=== PATIENT | female | born 1975 | race Caucasian/White ===

== ENCOUNTER → 2017-07-17 | Outpatient (CLI) | payer BC ==
[~2017-07-17] MED LIST: CRAN1CAP5 PO; DOCU100C37 PO; EST30C VG; GARL100T PO; HYDR-34 PO; IBUP-844 PO; OMG1KC PO; SIME80TA16 PO
--- NOTE | 2017-07-17 17:47 | Diagnostic Imaging Report ---
INDICATION: Menorrhagia. TECHNIQUE: Multiple real-time grayscale sonographic images were obtained of the pelvis transabdominally and transvaginally. CORRELATION STUDY: None. FINDINGS: UTERUS/ENDOMETRIUM: Uterus measures 8.9 x 8.6 x 8.1 cm. Endometrial thickness is 15 mm. Area of heterogeneity along the right aspect of the uterus while nonspecific suspect for potential fibroid measuring 5.9 x 7.3 x 5.3 cm. This does displace with contour deformity at the endometrial stripe towards the left. Endometrium is borderline thickened at 15 mm, a premenopausal patient. Additionally, there is the suggestion of some increased vascular blood flow. RIGHT OVARY: Not visualized, perhaps obscured by overlying bowel gas or positional. LEFT OVARY: 4.3 x 2.2 x 1.9 cm. Left ovary appears relatively unremarkable. Blood flow is demonstrates to the left ovary. No significant free pelvic fluid. IMPRESSION: 1. Probable fibroid uterus with a fibroid measuring approximately 7 cm in size. There is resultant displacement of the endometrial stripe. 2. Endometrium is borderline thickened for a premenopausal patient with abnormal vascularity. Given history, the possibility of endometrial hyperplasia, polyp, or perhaps endometrial malignancy is not excluded. Follow-up imaging is recommended for reassessment. Dictated by: Dictated on workstation # [id number]
== END ==
LOC: RAD 12:54
PROVIDERS: ATTEND Obstetrics & Gynecology
DX: N85.2 Hypertrophy of uterus (principal)
CPT/HCPCS: 76830; 76856

== ENCOUNTER 2017-08-01 12:16 | Outpatient (CLI) | payer BC ==
[~2017-08-01] VITALS: Ht 157.5 cm; Wt 63.0 kg
[2017-08-01 12:23] VITALS: BP 114/72
[2017-08-01 12:45] LABS: BILIRUBIN,URINE NEGATIVE (NEGATIVE); CLARITY,URINE CLEAR; COLOR,URINE YELLOW; GLUCOSE, URINE (UA) NEGATIVE (NEGATIVE); KETONES,URINE NEGATIVE (NEGATIVE); LEUKOCYTE ESTERASE ,URINE 1+ (NEGATIVE); NITRITE,URINE NEGATIVE (NEGATIVE); PH,URINE 7 (5-9); PROTEIN,URINE NEGATIVE (NEGATIVE); UROBILINOGEN,URINE NORMAL (NORMAL)
[2017-08-01 12:54] LABS: BACTERIA,URINE TRACE /HPF; RBC,URINE RARE /HPF; SQUAMOUS EPITHELIAL CELL,UR 0-2 /HPF; WBC,URINE RARE /HPF
[2017-08-01] MEDS ORDERED: GARL100T PO (13:52)
[2017-08-01] MEDS ORDERED: OMG1KC PO (13:52)
[2017-08-01] MEDS ORDERED: CRAN1CAP5 PO (13:52)
[2017-08-08] MEDS ORDERED: EST30C VG (10:18)
[2017-08-08] MEDS ORDERED: IBUP-844 PO (10:18)
[2017-08-08] MEDS ORDERED: SIME80TA16 PO (10:18)
[2017-08-08] MEDS ORDERED: HYDR-34 PO (10:18)
[2017-08-08] MEDS ORDERED: DOCU100C37 PO (10:18)
== END 2017-08-01 12:45 | disposition home or self-care (01) ==
LOC: PREOP 12:16
PROVIDERS: ATTEND Obstetrics & Gynecology
DX: Z01.818 Encounter for other preprocedural examination (principal); D25.9 Leiomyoma of uterus, unspecified
CPT/HCPCS: 81000; 87081

== ENCOUNTER 2017-08-07 06:07 | Day surgery (SDC) | payer BC ==
[2017-08-07] VITALS (8 sets, daily range): BP systolic 96–106; BP diastolic 61–72
[~2017-08-07] VITALS: Ht 157.5 cm; Wt 63.0 kg
[~2017-08-07 06:07] MED LIST changes: -DOCU100C37 PO; -EST30C VG; -HYDR-34 PO; -IBUP-844 PO; -SIME80TA16 PO
[2017-08-07] MEDS: LACTATED RINGERS 1,000 ML IV PRN ×2 (06:20→08:30)
[2017-08-07 06:40] LABS: BASOPHILS % (AUTO) 0 % (0-10); EOSINOPHILS % (AUTO) 0 % (0-10); HEMATOCRIT 40 % (35-52); HEMOGLOBIN 13.8 G/DL (11.5-16.0); LYMPHOCYTES # (AUTO) 1.5 X 10^3 (1.0-4.0); LYMPHOCYTES % (AUTO) 27 % (12-44); MEAN CORPUSCULAR HEMOGLOBIN 29 PG (25-34); MEAN CORPUSCULAR HGB CONC 35 G/DL (32-36); MEAN CORPUSCULAR VOLUME 84 FL (80-99); MEAN PLATELET VOLUME 10.4 FL (7.4-10.4); MONOCYTES # (AUTO) 0.5 X 10^3 (0.0-1.0); MONOCYTES % (AUTO) 10 % (0-12); NEUTROPHILS # (AUTO) 3.4 X 10^3 (1.8-7.8); NEUTROPHILS % (AUTO) 63 % (42-75); PLATELET COUNT 219 10^3/uL (130-400); RED BLOOD COUNT 4.76 10^6/uL (4.35-5.85); RED CELL DISTRIBUTION WIDTH 15.3 % (10.0-14.5); WHITE BLOOD COUNT 5.4 10^3/uL (4.3-11.0)
[2017-08-07] MEDS ORDERED: NS (IVPB) 50 ML ONE (06:47)
[2017-08-07] MEDS ORDERED: metroNIDAZOLE 500MG/100ML IVPB 100 ML ONE (06:47)
[2017-08-07] MEDS ORDERED: ceFAZolin 1,000 MG (ANCEF) VIAL ONE (06:47)
[2017-08-07] MEDS ORDERED: proPOfol 200 MG/20 ML (DIPRIVAN) VIAL IV ONE (06:51)
[2017-08-07] MEDS ORDERED: LIDOCAINE PF 2% 5 ML (XYLOCAINE) VIAL ONE (06:51)
[2017-08-07] MEDS ORDERED: MIDAZOLAM 2 MG/2 ML (VERSED) VIAL ONE (06:51)
[2017-08-07] MEDS ORDERED: ROCURONIUM 10 MG/ML 5 ML SYRINGE IV ONE (06:51)
[2017-08-07] MEDS ORDERED: fentaNYL INJECTION 100 MCG/2 ML AMP ONE ×2 (06:51→10:11)
[2017-08-07] MEDS ORDERED: SEVOFLURANE (ULTANE) 15 ML INHAL SOLN ONE ×10 (06:51→11:47)
[2017-08-07] MEDS ORDERED: ceFAZolin 1 GM/NS 50 ML IVPB IV ONE ×2 (07:15)
[2017-08-07] MEDS ORDERED: metroNIDAZOLE 500 MG/100 ML IVPB (PRE-MIX) IV ONE (07:15)
[2017-08-07] MEDS ORDERED: VASOPRESSIN INJECTION 20 UNIT/ML VIAL ONE (07:29)
[2017-08-07] MEDS ORDERED: BUP/EPI 0.5% 1:200,000 (SENSORCAINE) 30 ML VIAL ONE (07:29)
[2017-08-07] MEDS ORDERED: ESTROGENS CONJ. CREAM 30 GM (PREMARIN) TUBE ONE (07:29)
[2017-08-07] MEDS ORDERED: metroNIDAZOLE 500MG/100ML IVPB 100 ML IV ONE (07:30)
[2017-08-07] MEDS ORDERED: ceFAZolin INJECTION 1,000 MG in NS (IVPB) 50 ML IV ONE (07:30)
--- NOTE | 2017-08-07 08:05 | Progress Note-Pre Operative ---
Pre-Operative Progress Note H&P Reviewed The H&P was reviewed, patient examined and no changes noted. Date Seen by Provider: Aug 07, 2017 Time Seen by Provider: 07:35 Date H&P Reviewed: Aug 07, 2017 Time H&P Reviewed: 07:30 Pre-Operative Diagnosis: uterine fibroid, menorrhagia, anemia, dysmenorrhea, genital prolapse, john AMANDA SAXENA DO Aug 07, 2017 08:05
[2017-08-07] MEDS ORDERED: DEXAMETHASONE 10 MG/ML (DECADRON) 1 ML VIAL ONE (09:59)
[2017-08-07] MEDS: NS (IVPB) 100 ML ONE (11:00)
[2017-08-07] MEDS ORDERED: KETOROLAC 30 MG/ML VIAL ONE (11:22)
[2017-08-07] MEDS ORDERED: INDIGO CARMINE 8 MG/ML 5 ML AMP ONE (11:22)
--- NOTE | 2017-08-07 11:27 | Operative Report ---
Operative Report Date of Procedure/Surgery Aug 07, 2017 Surgeon (s) AMANDA SAXENA DO Used Car Manager (s): [place] asst nec to retract imp. neurovascular structures Post-Operative Diagnosis Uterovaginal prolapse, incomplete Uterine fibroid cystocele Stress incontinence liver adhesions Procedure Performed (> 250 grams) RaTH, bilateral salpingectomy, right oophorectomy ant repair Solyx Description of Procedure Anesthesia Type: General Estimated blood loss (mL): 150 Specimen(s) collected/removed uterus, tubes ovary uterus 335 grams Description of the Procedure With informed consent, the patient was taken to the operating room where general anesthesia was found to be adequate. She was then placed in the dorsal lithotomy position, prepped and draped in the normal sterile fashion. The Burkett catheter was placed using sterile technique. A weighted speculum was inserted in the patient's vagina. A right angle retractor is used visualizing the cervix, was grasped at the 12 o'clock position using a single tooth tenaculum. I then placed a 0 Vicryl suture through the anterior lip of the cervix and removed the single tooth tenaculum; this provided retraction. I then placed the MAYCO uterine manipulator. An 12 cm MAYCO uterine manipulator tip and a 3.5 cm colpotomy ring were placed and advance the MAYCO uterine manipulator into the endometrial cavity, deploy the balloon and advancing the colpotomy ring around the vaginal fornix. Once this is in place, attention was now turned to the abdomen I placed a supraumbilical incision after infiltrating with 0.25% Marcaine. I then made a 1 cm incision and placed the Veress needle. Intraabdominal placement was confirmed with the use of the saline drop test and a drop in pressure. The abdomen was now insufflated to a maximum pressure of 15 mmHg with warmed CO2 gas. An 8 mm trocar was now placed. And intraabdominal placement was confirmed with the Da Dash laparoscopy. The patient was now placed into steep Trendelenburg. I placed 2 lateral trocars, on the right side and the left side, approximately 12 cm lateral to my infraumbilical trocar. I infiltrate the skin using 0.25% Marcaine and make an 8 mm incisions and I direct trocars under direct visualization of the laparoscope into the peritoneal cavity. Once these trocars are in place, I brought in the da Dash robot and docked it in the appropriate fashion. I placed the bi polar graspers in the left hand. And the monopolar martinez in my right hand. I now performed bilateral salpingectomies by incision the mesosalpinx bilaterally and then clamping the tube at the cornu bilaterally and uterineovarian ligaments completing the excision of the tubes. I then grasped the round ligament, bipolar cauterize this and transect it using the martinez. I then grasp the entire broad ligament, bipolar cauterize it and transect it using the martinez down to the level lower uterine segment. Now I am able to skeletonize the uterine vessels which are bipolar cauterized and transected using the martinez. During this dissection, I trace the ureter all the way down to its crossing point across the uterine artery and very careful to stay clear of this area as I dissect. I then am able to take my anterior dissection from previously. I create a colpotomy to the 12 o'clock position using the monopolar martinez and take this circumferentially amputating the cervix away from the vaginal fornix. The cervix , uterus are then removed through the vagina. This is left in place in the vagina to keep the pneumoperitoneum. I then proceed with closing the vaginal cuff using a V-Lock 2-0 in a running fashion from each apex and overlapping in the midline. This incorporating the lateral vaginal apices. There is no active bleeding noted from any my dissection planes. The ureters were seen the entire time and are away from suturing. The Da Dash is now undocked. The remainder of the case is continued laparoscopically. I copiously irrigate the pelvis using normal saline. There is no active bleeding noted from any my dissection planes. I then have the patient taken out of steep Trendelenburg and remove all the lateral trocars under direct visualization of the laparoscope. The supraumbilical trocar is then used to release insufflation and introduce 10 mL 0.25% Marcaine. I then remove this trocar and close the fascial incision using 0 Vicryl in figure of eight fashion. I then close the other incisions with 4-0 Monocryl. [place] is applied to the incision and dressings are placed over these. The patient was now repositioned for the vaginal repair. A 2-3+ cystocele was again noted, though it is less prominent. The anterior vaginal epithelium was injected with dilute vasopressin and then grasped with Allis clamps. It was then incised in the midline. The epithelium was dissected off the underlying fascia laterally to the white line and then the midline cystocele was repaired with interrupted 2-0 Vicryl. I also placed a Vanita plications in the suburethral area with 2- Vicryl. The excess epithelium was incised and then the defect was closed with 2-0 Vicryl in a running fashion. A transurethral sling is now done. A 1 cm incision was made in the suburethral space with a scalpel about 1.5 cm from the urethral meatus. I dissected bilaterally to the obturator membranes and then inserted the Solyx bilaterally and then tightened under the midurethra. I did a cystoscopy which was negative. There was bilateral urethral efflux of urine. I then kept 300 ml in the bladder and did a Cred. There was minimal leakage. The sling laid gently under the urethra and was not too tight. There was no intravesicular pathology. The incision was closed with 4-0 Monocryl in a running fashion. Burkett was reinserted. Vaginal pack was placed with estrogen vaginal cream. Patient was awakened and taken to the recovery room in stable condition. Following the case, instrument counts were correct. The patient was repositioned in the supine position and awakened from general anesthesia without difficulty. She was taken to recovery in stable condition. She will be observed overnight. . The patient tolerated the procedure well and was taken to the recovery area in stable condition with Burkett catheter in place. Lap and sponge counts correct the end of the procedure, instrument count is correct as well. 2 grams of Ancef. 500 mg Flagyl given preoperatively for infection prophylaxis. Findings of the Procedure enlarged uterus (335 grams), incomplete uterovaginal prolapse (2-3+), 2-3 + cystocele, > 45 degrees rotation of the urethra, uterine fibroid, very dense adhesions of the liver to the right upper abdomen. Gallbladder appeared within normal limits. Allergies and Home Medications Allergies Coded Allergies: Sulfa (Sulfonamide Antibiotics) (Verified Allergy, Unknown, 08/01/17) Home Medications Cranberry Extract/Vit C 1 Each Capsule, 1 EACH PO DAILY, (Reported) Docusate Sodium 100 Mg Capsule, 100 MG PO BID PRN for CONSTIPATION-1ST LINE Prescribed by: AMANDA SAXENA on 08/08/17 1018 Estrogens Conjugated 30 Gm Cr, 0.5 GM VG HS begin 4-6 weeks post operative Prescribed by: AMANDA SAXENA on 08/08/17 1018 Garlic 100 Mg Tablet, 100 MG PO DAILY, (Reported) Hydrocodone Bit/Acetaminophen 1 Ea Tablet, 1-2 EA PO Q6H PRN for PAIN-MODERATE TO SEVERE Prescribed by: AMANDA SAXENA on 08/08/17 1018 Ibuprofen 600 Mg Tablet, 600 MG PO Q6H PRN for PAIN-MILD Prescribed by: AMANDA SAXENA on 08/08/17 1018 [place] 3 Polyunsat Fatty Acids 1,000 Mg Cap, 1,000 MG PO DAILY, (Reported) Simethicone 80 Mg Tab.chew, 40 MG PO TID PRN for INDIGESTION Prescribed by: AMANDA SAXENA on 08/08/17 1018 Patient Home Medication List Home Medication List Reviewed: Yes AMANDA SAXENA DO Aug 07, 2017 11:27 am
[2017-08-07] MEDS ORDERED: CHLORASEPTIC LOZENGE MM PRN (11:30)
[2017-08-07] MEDS ORDERED: ANTACID SUSP 30 ML UDC (MYLANTA) PO PRN (11:30)
[2017-08-07] MEDS ORDERED: DOCUSATE SODIUM 100 MG (COLACE) CAP PO PRN (11:30)
[2017-08-07] MEDS ORDERED: HYDROcodone/APAP 7.5 MG/325 MG (LORTAB, LORCET PLUS) TABLET PO PRN (11:30)
[2017-08-07] MEDS ORDERED: SIMETHICONE 80 MG (MYLICON) CHEW PO PRN (11:30)
[2017-08-07] MEDS ORDERED: HYDROmorphone 1 MG/ML (DILAUDID) 1 ML SYRINGE IV PRN (11:30)
[2017-08-07] MEDS: morphine INJ 10 MG/ML 1ML (SYR OR VIAL) IVP PRN ×2 (12:05→12:10)
[2017-08-07] MEDS ORDERED: morphine INJ 10 MG/ML 1ML (SYR OR VIAL) ONE (12:06)
--- NOTE | 2017-08-07 12:39 | Anesthesia-General Post-Op ---
General Patient Condition Mental Status/LOC: Same as Preop Cardiovascular: Satisfactory Nausea/Vomiting: Absent Respiratory: Satisfactory Pain: Controlled Complications: Absent Post Op Complications Complications None Follow Up Care/Instructions Patient Instructions None needed. Anesthesia/Patient Condition Patient Condition Patient is doing well, no complaints, stable vital signs, no apparent adverse anesthesia problems. No complications reported per nursing. D/C home per [facility] [place] Criteria: No CARLOS SANCHEZ CRNA Aug 07, 2017 12:39
[2017-08-07] MEDS: LACTATED RINGERS 1,000 ML IV SCH ×2 (13:19→21:20)
[2017-08-07] MEDS: ONDANSETRON 4 MG/2 ML (SDV) Z0FRAN IV PRN ×2 (16:11→21:22)
[2017-08-07] MEDS: KETOROLAC 30 MG/ML VIAL IV PRN (18:24)
[2017-08-08] MEDS: KETOROLAC 30 MG/ML VIAL IV PRN (00:06)
[2017-08-08 00:36] VITALS: BP 93/57
[2017-08-08] MEDS ORDERED: D5 LR IV SOLUTION 0 ML IV ONE (05:28)
[2017-08-08] MEDS: LACTATED RINGERS 1,000 ML IV SCH (05:34)
[2017-08-08] MEDS: IBUPROFEN 600 MG (MOTRIN) TAB PO PRN ×2 (05:42→11:52)
[2017-08-08 05:45] VITALS: BP 98/63
[2017-08-08 08:07] VITALS: BP 91/59
[2017-08-08] MEDS ORDERED: IBUP-844 PO (10:18)
[2017-08-08] MEDS ORDERED: DOCU100C37 PO (10:18)
[2017-08-08] MEDS ORDERED: EST30C VG (10:18)
[2017-08-08] MEDS ORDERED: HYDR-34 PO (10:18)
[2017-08-08] MEDS ORDERED: SIME80TA16 PO (10:18)
--- NOTE | 2017-08-08 10:24 | Discharge Inst-Women's Service ---
Discharge Inst-Women's Serv Depart Medication/Instructions New, Converted or Re-Newed RX: RX on Chart Final Diagnosis genital prolapse, uterine fibroid stress incontinence cystocele Consults/Follow Up Additional Follow Up: Yes (1 week and 10-12 weeks) Activity Activity: Activity as Tolerated Driving Instructions: No Driving for 1 Week NO SMOKING: NO SMOKING Nothing Inside Vagina: No Douching, No [place], No Tampons Diet Discharge Diet: No Restrictions Symptoms to Report to : Bleeding Excessive, Pain Increased, Fever Over 101 Degrees F, Vaginal Bleeding Increase, Cramps in Feet or Legs, Vaginal Discharge Foul For Any Problems or Questions: Contact Your Physician Skin/Wound Care Infection Signs and Symptoms: Increased Redness, Foul Odor of Wound, Increased Drainage, Skin Itchy or Has a Rash, Increased Swelling, Temperature Above 101 F Operative Area Clean and Dry: Keep Incision Clean/Dry (keep incision covered for 2-3 days) Stitches/[place]/Dermabond: Dermabond Bathing Instructions: AMANDA Greenberg DO Aug 08, 2017 10:24 am
== END 2017-08-08 12:05 | disposition home or self-care (01) ==
LOC: SDC 06:07 → WS 12:46 → SDC 08-08 12:05
PROVIDERS: ATTEND Obstetrics & Gynecology
DX: N81.2 Incomplete uterovaginal prolapse (principal); D25.0 Submucous leiomyoma of uterus; N80.0 Endometriosis of uterus; N85.8 Other specified noninflammatory disorders of uterus; N83.11 Corpus luteum cyst of right ovary; N39.3 Stress incontinence (female) (male)
CPT/HCPCS: 36415; 84703; 85025; 86850; 86900; 86901; 88309; 94664

== ENCOUNTER → 2018-07-15 | Outpatient (CLI) | payer BC ==
[~2018-07-15] MED LIST changes: +DOCU100C37 PO; +EST30C VG; +HYDR-34 PO; +IBUP-844 PO; +SIME80TA16 PO
== END ==
LOC: RAD 09:51
PROVIDERS: ATTEND Obstetrics & Gynecology
DX: Z12.31 Encounter for screening mammogram for malignant neoplasm of breast (principal)
CPT/HCPCS: 77067

== ENCOUNTER → 2018-07-29 | Outpatient (CLI) | payer BC ==
--- NOTE | 2018-07-29 21:40 | Diagnostic Imaging Report ---
INDICATION: Right breast masses. This study is performed for further evaluation. Correlation is made with recent screening study from 07/15/2018. FINDINGS: Sonographic interrogation of the upper-outer right breast was performed. Multiple simple-appearing cysts are identified. The largest is located at the 11 o'clock location 3 cm from the nipple measuring 2.6 x 1.6 x 2.0 cm. A cyst at the 12 o'clock location 2 cm from the nipple measures 2.2 x 1.0 x 2.2 cm. No solid lesions are seen. IMPRESSION: Multiple right breast cysts, accounting for the densities noted mammographically. The patient may return to routine annual screening mammography. ACR BI-RADS Category 2: Benign findings. Dictated by: Dictated on workstation # [id number]
== END ==
LOC: RAD 13:12
PROVIDERS: ATTEND Obstetrics & Gynecology
DX: N60.01 Solitary cyst of right breast (principal)

== ENCOUNTER 2018-09-03 09:13 | Outpatient (RCR) | payer BC | END 2018-10-10 11:03 | disposition home or self-care (01) | PROVIDERS: ATTEND Obstetrics & Gynecology | DX: S76.211A Strain of adductor muscle, fascia and tendon of right thigh, initial encounter (principal); S76.212A Strain of adductor muscle, fascia and tendon of left thigh, initial encounter ==

== ENCOUNTER 2019-12-01 14:55 | Emergency (ER) | payer BC ==
[~2019-12-01] VITALS: Ht 157.5 cm; Wt 58.0 kg
[2019-12-01] MEDS ORDERED: LACTATED RINGERS 1,000 ML IV ONE (15:18)
[2019-12-01] MEDS ORDERED: FAMOTIDINE 20MG/2ML IV (PEPCID) IVP ONE (15:30)
[2019-12-01] MEDS ORDERED: LIDOCAINE 2% VISCOUS 15 ML UDC PO ONE (15:30)
[2019-12-01] MEDS ORDERED: ANTACID SUSP 30 ML UDC (MYLANTA) PO ONE (15:30)
[2019-12-01] MEDS ORDERED: ONDANSETRON 4 MG/2 ML (SDV) Z0FRAN IVP ONE (15:30)
[2019-12-01 15:49] LABS: BILIRUBIN,URINE NEGATIVE (NEGATIVE); CLARITY,URINE SL CLOUDY; COLOR,URINE YELLOW; GLUCOSE, URINE (UA) NEGATIVE (NEGATIVE); KETONES,URINE NEGATIVE (NEGATIVE); LEUKOCYTE ESTERASE ,URINE 2+ (NEGATIVE); NITRITE,URINE NEGATIVE (NEGATIVE); PROTEIN,URINE 1+ (NEGATIVE)
[2019-12-01 15:56] LABS: BASOPHILS % (AUTO) 0 % (0-10); EOSINOPHILS % (AUTO) 0 % (0-10); HEMATOCRIT 33 % (35-52); HEMOGLOBIN 10.9 g/dL (11.5-16.0); LYMPHOCYTES # (AUTO) 0.9 10^3/uL (1.0-4.0); LYMPHOCYTES % (AUTO) 11 % (12-44); MEAN CORPUSCULAR HEMOGLOBIN 29 pg (25-34); MEAN CORPUSCULAR HGB CONC 33 g/dL (32-36); MEAN CORPUSCULAR VOLUME 89 fL (80-99); MEAN PLATELET VOLUME 10.1 fL (9.0-12.2); MONOCYTES # (AUTO) 0.8 10^3/uL (0.0-1.0); MONOCYTES % (AUTO) 10 % (0-12); NEUTROPHILS % (AUTO) 78 % (42-75); PLATELET COUNT 246 10^3/uL (130-400); WHITE BLOOD COUNT 7.7 10^3/uL (4.3-11.0)
[2019-12-01 15:57] LABS: BACTERIA,URINE LARGE /HPF; RBC,URINE 25-50 /HPF
[2019-12-01 15:59] LABS: ALBUMIN 3.5 GM/DL (3.2-4.5); CHLORIDE 101 MMOL/L (98-107); POTASSIUM 3.6 MMOL/L (3.6-5.0); SODIUM 135 MMOL/L (135-145)
[2019-12-01 16:00] LABS: CALCIUM 8.9 MG/DL (8.5-10.1)
[2019-12-01 16:02] LABS: GLUCOSE 109 MG/DL (70-105)
[2019-12-01 16:03] LABS: BILIRUBIN,TOTAL 0.6 MG/DL (0.1-1.0); CARBON DIOXIDE 23 MMOL/L (21-32)
[2019-12-01 16:05] LABS: ALKALINE PHOSPHATASE 367 U/L (40-136); CREATININE SERUM 0.69 MG/DL (0.60-1.30); GFR ESTIMATED > 60
[2019-12-01 16:06] LABS: BUN/CREATININE RATIO 16
[2019-12-01 16:08] LABS: ALANINE AMINOTRANSFERASE 182 U/L (0-55)
[2019-12-01 16:09] LABS: LIPASE 25 U/L (8-78)
--- NOTE | 2019-12-01 16:32 | ED Abdominal Pain ---
General Chief Complaint: - Urinary Stated Complaint: UTI; FEVER; FATIGUE Nursing Triage Note: PT ARRIVES TO ER WITH C/O UTI SYMPTOMS. SHE STATES IT GARCIA WHEN SHE URINATES AND HER INSIDES "DONT FEEL RIGHT". PT ALSO SAID SHE HAD A FEVER TODAY AND CHILLS Sepsis Screen: Possible Sepsis Risk Source of Information: Patient Exam Limitations: No Limitations History of Present Illness Date Seen by Provider: Dec 01, 2019 Time Seen by Provider: 14:57 Initial Comments This 44-year-old woman presents to the emergency room with complaints of generalized abdominal discomfort and bloating along with dysuria, fever of up to 100.8, and chills. She denies any cough, shortness of breath, upper respiratory symptoms, or COVID-19 exposures. She is afebrile at present. She has tenderness in the epigastric region. Symptoms have been present for at least 2 days. Patient takes frequent NSAID medications because of severe arthritis. Sh pura denies any tobacco, drug, or alcohol use. She denies constipation or diarrhea. She has been having small solid bowel movements. Allergies and Home Medications Allergies Coded Allergies: Sulfa (Sulfonamide Antibiotics) (Verified Allergy, Unknown, 08/01/17) Home Medications Azithromycin 250 Mg Tablet, 250 MG PO DAILY Prescribed by: NATIVIDAD ORTIZ on 12/01/191854 Cefdinir 300 Mg Capsule, 300 MG PO BID Prescribed by: NATIVIDAD ORTIZ on 12/01/191854 Cranberry Extract/Vit C 1 Each Capsule, 1 EACH PO DAILY, (Reported) Docusate Sodium 100 Mg Capsule, 100 MG PO BID PRN for CONSTIPATION-1ST LINE Prescribed by: AMANDA SAXENA on 08/08/17 1018 Estrogens Conjugated 30 Gm Cr, 0.5 GM VG HS begin 4-6 weeks post operative Prescribed by: AMANDA SAXENA on 08/08/17 1018 Garlic 100 Mg Tablet, 100 MG PO DAILY, (Reported) Hydrocodone Bit/Acetaminophen 1 Ea Tablet, 1-2 EA PO Q6H PRN for PAIN-MODERATE TO SEVERE Prescribed by: AMANDA SAXENA on 08/08/17 1018 Ibuprofen 600 Mg Tablet, 600 MG PO Q6H PRN for PAIN-MILD Prescribed by: AMANDA SAXENA on 08/08/17 1018 [place] 3 Polyunsat Fatty Acids 1,000 Mg Cap, 1,000 MG PO DAILY, (Reported) Simethicone 80 Mg Tab.chew, 40 MG PO TID PRN for INDIGESTION Prescribed by: AMANDA SAXENA on 08/08/17 1018 Patient Home Medication List Home Medication List Reviewed: Yes Review of Systems Review of Systems Constitutional: other (fatigue) EENTM: No Symptoms Reported Respiratory: No Symptoms Reported Cardiovascular: No Symptoms Reported Gastrointestinal: See HPI Genitourinary: See HPI Musculoskeletal: no symptoms reported Skin: no symptoms reported Psychiatric/Neurological: No Symptoms Reported Endocrine: No Symptoms Reported Hematologic/Lymphatic: No Symptoms Reported Past Uqkikth-Nyxwlr-Seurwv Hx Past Med/Social Hx: Reviewed Nursing Past Med/Soc Hx Patient Social History Alcohol Use: Denies Use Recreational Drug Use: No 2nd Hand Smoke Exposure: No Recent Foreign Travel: No Contact w/Someone Who Travel: No Recent Infectious Disease Expo: No Recent Hopitalizations: No Physical Abuse: No Sexual Abuse: No Mistreated: No Fear: No Immunizations Up To Date Tetanus Booster (TDap): Less than 5yrs Seasonal Allergies Seasonal Allergies: Yes Past Medical History Surgeries: Yes (bladder enlarged, ectopic removed, ) Section, Hysterectomy Respiratory: No Cardiac: No Neurological: Yes Reproductive Disorders: Yes (uterine fibriod) 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 0.0oz. [id number]; 23.00 BMI Method: General Appearance: WD/WN, thin HEENT: PERRL/EOMI, normal ENT inspection, pharynx normal Neck: normal inspection Respiratory: lungs clear, normal breath sounds, no respiratory distress, no accessory muscle use Cardiovascular: regular rate, rhythm, no edema Gastrointestinal: normal bowel sounds, soft, tenderness (epigastrium), other (tympanic to percussion) Extremities: normal inspection, no pedal edema Neurologic/Psychiatric: core filer II-XII nml as tested, no motor/sensory deficits, alert, normal mood/affect, oriented x 3 Skin: normal color, warm/dry Progress/Results/Core Measures Results/Orders Lab Results Laboratory Tests Test 12/01/19 15:23 12/01/19 15:40 12/01/19 16:53 12/01/19 18:16 Range/Units White Blood Count 7.7 4.3-11.0 10^3/uL Red Blood Count 3.74 L 3.80-5.11 10^6/uL Hemoglobin 10.9 L 11.5-16.0 g/dL Hematocrit 33 L 35-52 % Mean Corpuscular Volume 89 80-99 fL Mean Corpuscular Hemoglobin 29 25-34 pg Mean Corpuscular Hemoglobin Concent 33 32-36 g/dL Red Cell Distribution Width 12.8 10.0-14.5 % Platelet Count 246 130-400 10^3/uL Mean Platelet Volume 10.1 9.0-12.2 fL Immature Granulocyte % (Auto) 0 % Neutrophils (%) (Auto) 78 H 42-75 % Lymphocytes (%) (Auto) 11 L 12-44 % Monocytes (%) (Auto) 10 0-12 % Eosinophils (%) (Auto) 0 0-10 % Basophils (%) (Auto) 0 0-10 % Neutrophils # (Auto) 6.0 1.8-7.8 10^3/uL Lymphocytes # (Auto) 0.9 L 1.0-4.0 10^3/uL Monocytes # (Auto) 0.8 0.0-1.0 10^3/uL Eosinophils # (Auto) 0.0 0.0-0.3 10^3/uL Basophils # (Auto) 0.0 0.0-0.1 10^3/uL Immature Granulocyte # (Auto) 0.0 0.0-0.1 10^3/uL Sodium Level 135 135-145 MMOL/L Potassium Level 3.6 3.6-5.0 MMOL/L Chloride Level 101 98-107 MMOL/L Carbon Dioxide Level 23 21-32 MMOL/L Anion Gap 11 5-14 MMOL/L Blood Urea Nitrogen 11 7-18 MG/DL Creatinine 0.69 0.60-1.30 MG/DL Estimat Glomerular Filtration Rate > 60 BUN/Creatinine Ratio 16 Glucose Level 109 H 70-105 MG/DL Calcium Level 8.9 8.5-10.1 MG/DL Corrected Calcium 9.3 8.5-10.1 MG/DL Total Bilirubin 0.6 0.1-1.0 MG/DL Aspartate Amino Transf (AST/SGOT) 132 H 5-34 U/L Alanine Aminotransferase (ALT/SGPT) 182 H 0-55 U/L Alkaline Phosphatase 367 H 40-136 U/L C-Reactive Protein High Sensitivity 23.50 H 0.00-0.50 MG/DL Total Protein 7.0 6.4-8.2 GM/DL Albumin 3.5 3.2-4.5 GM/DL Lipase 25 8-78 U/L Urine Color YELLOW Urine Clarity SL CLOUDY Urine pH 6.0 5-9 Urine Specific [place] 1.010 L 1.016-1.022 Urine Protein 1+ H NEGATIVE Urine Glucose (UA) NEGATIVE NEGATIVE Urine Ketones NEGATIVE NEGATIVE Urine Nitrite NEGATIVE NEGATIVE Urine Bilirubin NEGATIVE NEGATIVE Urine Urobilinogen 4.0 < = 1.0 MG/DL Urine Leukocyte Esterase 2+ H NEGATIVE Urine RBC (Auto) 3+ H NEGATIVE Urine RBC 25-50 H /HPF Urine WBC 10-25 H /HPF Urine Squamous Epithelial Cells 5-10 /HPF Urine Crystals NONE /LPF Urine Bacteria LARGE H /HPF Urine Casts NONE /LPF Urine Mucus NEGATIVE /LPF Urine Culture Indicated YES Coronavirus 2019 (LIZ) Negative Negative Test 12/01/19 19:00 Range/Units My Orders Orders - NATIVIDAD CURTIS MD Cbc With Automated Diff (12/01/19 14:57) Comprehensive Metabolic Panel (12/01/19 14:57) Hs C Reactive Protein (12/01/19 14:57) Ua Culture If Indicated (12/01/19 14:57) Ed Iv/Invasive Line Start (12/01/19 14:57) Ondansetron Injection (Zofran Injectio (12/01/19 15:30) Famotidine Injection (Pepcid Injection) (12/01/19 15:30) Lidocaine 2% Viscous 15 Ml (Xylocaine Vi (12/01/19 15:30) Antacid Suspension (Mylanta Suspension (12/01/19 15:30) Lactated Ringers (Lr 1000 Ml Iv Solution (12/01/19 15:18) Lipase (10/5/20 15:22) Urine Culture (12/01/19 15:40) Hepatitis Panel Acute (12/01/19 16:23) Ct Abdomen/Pelvis W (12/01/19 16:29) Iohexol Injection (Omnipaque 350 Mg/Ml 1 (12/01/19 16:45) Received Contrast (Hold Metformin- Contr (12/01/19 16:45) Ns (Ivpb) (Sodium Chloride 0.9% Ivpb Bag (12/01/19 16:45) Ceftriaxone For Iv Use (Rocephin For I (12/01/19 17:45) Covid 19 Inhouse Test (12/01/19 17:38) Azithromycin Tablet (Zithromax Tablet) (12/01/19 19:00) Coronavirus Sars-Cov-2 So 2019 (12/01/19 18:55) Medications Given in ED Vital Signs/I&O 12/01/19 12/01/19 15:07 19:35 Temp 37.1 36.4 Pulse 101 84 Resp 18 17 B/P (MAP) 116/77 (90) 148/82 Pulse Ox 98 100 12/02/19 00:00 Intake Total 1000 ml Balance 1000 ml Blood Pressure Mean: 90 Progress Progress Note #1: Time: 16:36 Progress Note Patient was treated with IV fluids, Zofran, Pepcid, and GI cocktail with improvement in her epigastric pain. Progress Note #2: Time: 17:14 Progress Note Labs were reviewed and patient was found have elevated transaminases. She denies any risk factors for acute hepatitis including alcohol consumption, tattoos, sexual exposures to carriers of hepatitis, etc. Ultrasound is unavailable at this time. Patient consents to CT scan because she is very concerned about her abdominal bloating. Urinary tract infection was also identified by urinalysis. Progress Note #3: Time: 18:[address] scan demonstrated possible groundglass opacification in the lung bases representing infiltrate versus atelectasis. Patient is being swabbed for COVID- 19. We are also giving Rocephin for UTI and possible pyelonephritis. Progress Note #4: Progress Note Rapid COVID was negative. Azithromycin is being added to her antibiotic therapy for possible pneumonia. See discharge instructions for further discussion. Diagnostic Imaging Diagonstic Imaging: CT Plain Films/CT/US/NM/MRI: abdomen, pelvis Comments CT abdomen and pelvis viewed by me and report reviewed. See report below: Departure Impression Primary Impression: Pyelonephritis Additional Impressions: Elevated transaminase level Person under investigation for COVID-19 Pulmonary infiltrate Disposition: HOME, SELF-CARE Condition: Improved Departure-Patient Inst. Referrals: NO,LOCAL PHYSICIAN (PCP/Family) Primary Care Physician Patient Instructions: Kidney Infection Add. Discharge Instructions: Complete your antibiotics as prescribed. You do not need to start them until tomorrow morning. Stay home and quarantine until the result of your backup COVID-19 test is known. Drink plenty of clear liquids. You may take Tylenol and/or ibuprofen for discomfort. Gradually advance your diet with small quantities of bland food as tolerated. You MUST follow-up with your primary care provider regarding your elevated liver enzymes. Please call tomorrow to schedule a follow-up. Some of the liver labs obtained in the emergency room have pending results. Please review those with your doctor. All discharge instructions reviewed with patient and/or family. Voiced understanding. Scripts Cefdinir (Cefdinir) 300 Mg Capsule 300 MG PO BID, #20 CAP Prov: NATIVIDAD CURTIS MD 12/01/19 Azithromycin (Azithromycin) 250 Mg Tablet 250 MG PO DAILY, #4 TAB 0 Refills Prov: NATIVIDAD CURTIS MD 12/01/19 Work/School Note: Work Release Form Date Seen in the Emergency Department: Dec 01, 2019 Return to Work: Dec 03, 2019 Other Restrictions Listed Below: May return to work if COVID-19 test negative. Restrictions: If COVID-19 test positive, follow health department instructions. NATIVIDAD CURTIS MD Dec 01, 2019 16:32
[2019-12-01] MEDS ORDERED: HOLD METFORMIN - RECEIVED CONTRAST 20 ML VIAL IV SCH (16:45)
[2019-12-01] MEDS ORDERED: NS 100 ML (IVPB) BAG IV ONE (16:45)
[2019-12-01] MEDS ORDERED: IOHEXOL 350 MG/ML 100 ML (OMNIPAQUE 350) VIAL IV ONE (16:45)
--- NOTE | 2019-12-01 17:19 | Diagnostic Imaging Report ---
PROCEDURE: CT abdomen and pelvis with contrast. TECHNIQUE: Multiple contiguous axial images were obtained through the abdomen and pelvis after administration of intravenous contrast. Auto Exposure Controls were utilized during the CT exam to meet ALARA standards for radiation dose reduction. All CT scans use one or more of the following dose optimizing techniques: automated exposure control, MA and/or KvP adjustment based on patient size and exam type or iterative reconstruction. INDICATION: Abdominal pain and elevated liver enzymes. Dysuria. Fever and chills. COMPARISON: None available. FINDINGS: LOWER THORAX: Scattered mild groundglass opacity is noted in both lung bases. Visualized heart is normal in size. LIVER: Normal. GALLBLADDER: No calcified gallstones, pericholecystic fluid or gallbladder wall thickening. BILE DUCTS: No biliary ductal dilatation. SPLEEN: Normal. PANCREAS: Normal. No pancreatic ductal dilatation. ADRENAL GLANDS: No nodules. RIGHT KIDNEY AND URETER: No hydronephrosis. There is heterogeneous enhancement, with several areas of relative hypoenhancement noted. No suspicious mass. Incidental note is made of an extrarenal pelvis. No abnormality in the visualized ureter. LEFT KIDNEY AND URETER: No hydronephrosis. Normal renal enhancement. No suspicious mass. No abnormality in the visualized ureter. STOMACH AND BOWEL: Stomach is physiologically-distended. No bowel obstruction. No inflammatory changes. APPENDIX: Not visualized. No pericecal inflammation. PELVIC ORGANS/BLADDER: Bladder is moderately distended. No focal wall thickening or bladder calculus is demonstrated. Uterus is absent. No pelvic mass. PERITONEUM AND RETROPERITONEUM: No pneumoperitoneum. No abdominal free fluid or loculated collection. LYMPH NODES: No lymphadenopathy. VESSELS: Abdominal aorta is nonaneurysmal. No venous thrombosis. Circumaortic left renal vein, anatomic variant. ABDOMINAL WALL: Unremarkable. BONES: Degenerative changes are noted in both hips. No acute osseous abnormality is identified. IMPRESSION: Heterogeneous hypoenhancement of the right kidney, compatible with pyelonephritis. Otherwise, no acute abdominal or pelvic pathology. Please see above for details. Subtle mild groundglass opacity is demonstrated in both lung bases, which may reflect atelectasis. Chest radiography may be of benefit in further evaluation if there is concern for an acute infectious process. Dictated by: Dictated on workstation # [id number]
[2019-12-01] MEDS ORDERED: cefTRIAXone FOR IV USE 1,000 MG in WATER (STERILE) FOR INJECTION 10 ML IV ONE (17:45)
[2019-12-01] MEDS ORDERED: CEFD300C3 PO (18:55)
[2019-12-01] MEDS ORDERED: AZIT250T12 PO (18:55)
[2019-12-01] MEDS ORDERED: AZITHROMYCIN 250 MG TAB (ZITHROMAX) PO ONE (19:00)
[2019-12-01 19:35] VITALS: BP 148/82
[2019-12-02 21:48] LABS: HEPATITIS C ANTIBODY C Non-Reactive (Non-Reactive)
== END 2019-12-01 19:35 | disposition home or self-care (01) ==
LOC: EDUNIT# 14:55 → ER 14:56
DX: N12 Tubulo-interstitial nephritis, not specified as acute or chronic (principal); R91.8 Other nonspecific abnormal finding of lung field; Z20.828 Contact with and (suspected) exposure to other viral communicable diseases; Z82.49 Family history of ischemic heart disease and other diseases of the circulatory system; Z80.49 Family history of malignant neoplasm of other genital organs; Z88.2 Allergy status to sulfonamides
CPT/HCPCS: 74177; 80053; 80074; 81000; 83690; 85025; 86141; 87077; 87088; 87186; 99284; U0002; 36415; 87635